=== PATIENT | male | born 1975 | race African-American/Black ===

== ENCOUNTER 2021-06-07 10:09 | Emergency (ER) | payer MEDICAID ==
[~2021-06-07] VITALS: Ht 167.6 cm; Wt 74.8 kg
--- NOTE | 2021-06-07 10:31 | NUR ---
Patient to ER bed 05 to gown for evaluation. Side rails up.
[2021-06-07 10:35] VITALS: BP_SYST 155
--- NOTE | 2021-06-07 10:47 | NUR ---
ER at bedside examining patient.
--- NOTE | 2021-06-07 10:48 | NUR ---
patient presents to ER with left sided tooth pain. Patient is ambulatory. Patient has visual swelling in his left jaw and verbilizes pain. Respiratory system WNL. VSS. Skin is intact. patient has hx of HTN, depression.
[2021-06-07] MEDS ORDERED: IBUPROFEN 800 MG TABLET PO ONE (11:00)
[2021-06-07] MEDS ORDERED: LIDOCAINE 4% TOPICAL 50 ML BOTTLE MM ONE (11:00)
[2021-06-07] MEDS ORDERED: CLINDAMYCIN HCL 150 MG CAPSULE PO ONE (11:30)
[2021-06-07] MEDS ORDERED: IBUP-1969 PO (11:31)
[2021-06-07] MEDS ORDERED: CLIN-142 PO (11:33)
[2021-06-07 11:46] VITALS: BP_SYST 155
--- NOTE | 2021-06-07 11:47 | NUR ---
Dr. Hernandes at bedside performing oral procedure.
--- NOTE | 2021-06-07 11:48 | NUR ---
Patient given written and verbal discharge instructions and verbalizes understanding. ER MD discussed with patient the results and treatment provided. Patient in stable condition. ID arm band removed. Rx of given Ibuprofen and clindamycin. Patient educated on pain management and to follow up with PMD. Pain Scale . Opportunity for questions provided and answered. Medication side effect fact sheet provided.
== END 2021-06-07 11:48 | disposition home or self-care (01) ==
LOC: SED 10:09
DX: K04.7 Periapical abscess without sinus (principal); I10 Essential (primary) hypertension; F32.9 Major depressive disorder, single episode, unspecified
CPT/HCPCS: 99283; 99284